=== PATIENT | male | born 1985 ===

== ENCOUNTER 2018-07-18 21:01 | Emergency (ER) | payer OTHER ==
[2018-07-18 21:44] VITALS: RESP 18; O2SAT 96
[2018-07-18 21:59] VITALS: BMI 31.0
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
[2018-07-19 00:08] VITALS: BP 109/73; PULSE 85; TEMP 97.9
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
--- NOTE | 2018-07-19 12:27 | CARD ---
APPROVED REPORT Date of service: 07/18/2018 EKG Measurement Heart [id number] <Conclusion> Normal sinus rhythm Normal Electrocardiogram
== END 2018-07-19 00:27 | disposition home or self-care (01) ==
LOC: ED 21:01
DX: M25.50 Pain in unspecified joint (principal); V49.9XXA Car occupant (driver) (passenger) injured in unspecified traffic accident, initial encounter